=== PATIENT | male | born 1960 | race Caucasian/White ===

== ENCOUNTER 2018-02-07 08:42 | Emergency (ER) | payer OTHER ==
[2018-02-07 08:50] VITALS: BP 142/80
== END 2018-02-07 08:58 | disposition left against medical advice (07) ==
DX: R10.84 Generalized abdominal pain (principal); Z53.21 Procedure and treatment not carried out due to patient leaving prior to being seen by health care provider

== ENCOUNTER 2018-05-30 18:04 | Observation (INO) | payer OTHER ==
[2018-05-30] MEDS ORDERED: NS 1,000 ML IV ONE (18:32)
--- NOTE | 2018-05-30 18:36 | EDPHY ---
H & P Stated Complaint: abd pain - Personal History Current Tetanus/Diphtheria Vaccine: Unsure Current Tetanus Diphtheria and Acellular Pertussis (TDAP): Unsure - Medical/Surgical History Hx Asthma: No Hx Chronic Respiratory Disease: No Hx Diabetes: No Hx Cardiac Disease: No Hx Renal Disease: No Hx Cirrhosis: No Hx Alcoholism: No Hx HIV/AIDS: No Hx Splenectomy or Spleen Trauma: No Other PMH: bilateral hip replacements, diverticulitis, arthririts, [place] - Social History Smoking Status: Never smoked Time Seen by Provider: 05/30/18 18:16 HPI/ROS: CHIEF COMPLAINT: Lower abdominal pain since 10:00 a.m. Today HISTORY OF PRESENT ILLNESS: 58-year-old male with prior history of uncomplicated diverticulitis via private vehicle complaining of abdominal pain since 10:00 a.m. This morning. Atraumatic. Describes in the bilateral lower quadrants. No testicular pain. No acute urinary abnormality. No radiation. No fever no chills. No diarrhea. No bowel movement abnormality. No melena or hematochezia Last oral intake at 5:00 p.m. Consisting of yogurt which he tolerated well PRIMARY CARE PROVIDER: REVIEW OF SYSTEMS: 10 systems reviewed and negative with the exception of the elements mentioned in the history of present illness PAST MEDICAL & SURGICAL HISTORY: Recurrent diverticulitis SOCIAL HISTORY: Nonsmoker FAMILY HISTORY: No pertinent family history PHYSICAL EXAM (Prior to examination, patient consented to physical exam, hands were washed and my usual and customary physical exam procedures followed) 1) GENERAL: Well-developed, well-nourished, alert and oriented. Appears to be in no acute distress. 2) HEAD: Normocephalic, atraumatic 3) HEENT: Pupils equal, round, reactive to light bilaterally. Sclera anicteric. 4) NECK: Full range of motion, no meningeal signs. 5) LUNGS: Clear auscultation bilaterally, no wheezes, no rhonchi, no retractions. 6) HEART: Regular rate and rhythm, no murmur, no heave, no gallop. 7) ABDOMEN: focally tender to palpation bilateral lower quadrants right greater than left,, negative Daly's, negative peritoneal sign, 8) MUSCULOSKELETAL: Moving all extremities, no focal areas of tenderness, no obvious trauma. No peripheral edema or discoloration. 9) BACK: No CVA tenderness, no midline vertebral tenderness, no fluctuance, no step-off, no obvious trauma, no visual or palpable abnormality. 10) SKIN: No rash, no petechiae. 11) : Normal male external genitalia bilateral testicles nontender non high- riding. Lab bilateral inguinal examination unremarkable with no mass no tenderness. DIFFERENTIAL DIAGNOSIS: My differential diagnosis includes, but is not limited to, acute appendicitis, acute cholecystitis, bowel obstruction, acute pancreatitis, testicular torsion, gastritis and urinary tract infection. The patient understands that this diagnosis is provisional and can never be 100% accurate. This is a partial list of diagnoses considered. These considerations are based on history, physical exam, past history and reassessment. (Devi Molina) Constitutional: Initial Vital Signs Temperature (C) 36.7 C 05/30/18 18:12 Heart Rate 65 05/30/18 18:12 Respiratory Rate 16 05/30/18 18:12 Blood Pressure 145/92 H 05/30/18 18:12 O2 Sat (%) 97 05/30/18 18:12 O2 Delivery Mode Room Air Allergies/Adverse Reactions: neomycin [Neomycin] Allergy (Intermediate, Verified 05/30/18 18:11) ITCHING, RASH Home Medications: Medication Instructions Recorded Adderall 10 MG (*) 02/07/18 Prozac 10 MG (*) 02/07/18 Medical Decision Making - Diagnostics Imaging Results: Imaging Impressions Abdomen CT 05/30/18 18:32 Impression: 1. Findings, as detailed above, would support a clinical diagnosis of acute appendicitis.. 2. See above report for additional findings. Results called and discussed with Devi PEREZ on 05/30/2018 at 19:44. Imaging Impressions Abdomen CT 05/30/18 18:32 Impression: 1. Findings, as detailed above, would support a clinical diagnosis of acute appendicitis.. 2. See above report for additional findings. Results called and discussed with Devi PEREZ on 05/30/2018 at 19:44. Images reviewed myself (Devi Molina) ED Course/Re-evaluation: 6:35 p.m.: Care of patient under supervision of secondary supervising physician Dr Urena with whom I discussed case and whom evaluated patient independently 7:40 p.m.: Imaging studies interpreted by staff radiologist with images reviewed myself indicates possible appendicitis. Discussed the imaging results with the patient. 7:45 p.m.: Consultation with Dr. Wily Duncan who will consult for suspected appendicitis. Patient remains NPO since 5:00 p.m.. 8:10 p.m.: Patient has been seen and evaluated by Dr. Wily Duncan will plan on appendectomy this evening. (Devi Molina) Other Provider: PHYSICIAN DOCUMENTATION: The patient was evaluated and managed by the Physician Certified Physician Assistant and myself. I have reviewed the chart and agree with the findings and plan of care as documented. In addition, I examined the patient myself at 1945. History confirmed as nontraumatic lower abdominal pain since this morning. Physical findings as follows: Right lower quadrant tenderness but no rebound or guarding. Surgical consultation requested from Dr. Duncan, in ED at 1950. I am the secondary supervising physician. (Georges Urena) - Data Points Laboratory Results: Laboratory Results 05/30/18 18:35 05/30/18 18:35 05/30/18 05/30/18 05/30/18 18:42 18:35 18:35 WBC 13.51 10^3/uL H 10^3/uL (3.80-9.50) RBC 4.71 10^6/uL 10^6/uL (4.40-6.38) Hgb 15.1 g/dL g/dL (13.7-17.5) POC Hgb 15.3 gm/dL gm/dL (13.7-17.5) Hct 42.7 % % (40.0-51.0) POC Hct 45 % % (40-51) MCV 90.7 fL fL (81.5-99.8) MCH 32.1 pg pg (27.9-34.1) MCHC 35.4 g/dL g/dL (32.4-36.7) RDW 12.5 % % (11.5-15.2) Plt Count 284 10^3/uL 10^3/uL (150-400) MPV 10.4 fL fL (8.7-11.7) Neut % (Auto) 80.8 % H % (39.3-74.2) Lymph % (Auto) 12.1 % L % (15.0-45.0) [place] % (Auto) 5.6 % % (4.5-13.0) Eos % (Auto) 0.9 % % (0.6-7.6) Baso % (Auto) 0.3 % % (0.3-1.7) Nucleat RBC Rel Count 0.0 % % (0.0-0.2) Absolute Neuts (auto) 10.92 10^3/uL H 10^3/uL (1.70-6.50) Absolute Lymphs (auto) 1.64 10^3/uL 10^3/uL (1.00-3.00) Absolute Monos (auto) 0.75 10^3/uL 10^3/uL (0.30-0.80) Absolute Eos (auto) 0.12 10^3/uL 10^3/uL (0.03-0.40) Absolute Basos (auto) 0.04 10^3/uL 10^3/uL (0.02-0.10) Absolute Nucleated RBC 0.00 10^3/uL 10^3/uL (0-0.01) Immature Gran % 0.3 % % (0.0-1.1) Immature Gran # 0.04 10^3/uL 10^3/uL (0.00-0.10) POC Sodium 143 mEq/L mEq/L (135-145) Sodium 138 mEq/L mEq/L (135-145) POC Potassium 3.8 mEq/L mEq/L (3.3-5.0) Potassium 4.0 mEq/L mEq/L (3.5-5.2) POC Chloride 104 mEq/L mEq/L (97-110) Chloride 106 mEq/L mEq/L (97-110) Carbon Dioxide 24 mEq/l mEq/l (22-31) Anion Gap 8 mEq/L mEq/L (6-14) POC BUN 15 mg/dL mg/dL (7-23) BUN 16 mg/dL mg/dL (7-23) Creatinine 0.9 mg/dL mg/dL (0.7-1.3) POC Creatinine 0.9 mg/dL mg/dL (0.7-1.3) Estimated GFR > 60 Glucose 100 mg/dL mg/dL (70-100) POC Glucose 100 mg/dL mg/dL (70-100) Calcium 9.3 mg/dL mg/dL (8.5-10.4) Total Bilirubin 0.6 mg/dL mg/dL (0.1-1.4) Conjugated Bilirubin 0.2 mg/dL mg/dL (0.0-0.5) Unconjugated Bilirubin 0.4 mg/dL mg/dL (0.0-1.1) AST 27 IU/L IU/L (17-59) ALT 33 IU/L IU/L (21-72) Alkaline Phosphatase 73 IU/L IU/L (38-126) Total Protein 7.5 g/dL g/dL (6.3-8.2) Albumin 4.3 g/dL g/dL (3.5-5.0) Lipase 58 IU/L IU/L (23-300) Medications Given: Discontinued Medications Fentanyl (Sublimaze) 50 mcg IVP EDNOW ONE Stop: 05/30/18 18:43 Last Admin: 05/30/18 18:47 Dose: 50 mcg Sodium Chloride (Ns) 1,000 mls @ 0 mls/hr IV ONCE ONE PRN Reason: Wide Open Stop: 05/30/18 18:33 Last Admin: 05/30/18 18:47 Dose: 1,000 mls Ketorolac Tromethamine (Toradol) 15 mg IVP EDNOW ONE Stop: 05/30/18 18:41 Last Admin: 05/30/18 18:47 Dose: 15 mg Point of Care Test Results: Chemistry 05/30/18 18:42 POC Sodium 143 mEq/L mEq/L (135-145) POC Potassium 3.8 mEq/L mEq/L (3.3-5.0) POC Chloride 104 mEq/L mEq/L (97-110) POC BUN 15 mg/dL mg/dL (7-23) POC Creatinine 0.9 mg/dL mg/dL (0.7-1.3) POC Glucose 100 mg/dL mg/dL (70-100) ISTAT H&H 05/30/18 18:42 POC Hgb 15.3 gm/dL gm/dL (13.7-17.5) POC Hct 45 % % (40-51) Departure - Departure Disposition: [facility] Inpatient Acute Clinical Impression: Acute appendicitis Qualifiers: Acute appendicitis type: with localized peritonitis Appendicitis gangrene presence: unspecified whether gangrene present Appendicitis perforation presence : without perforation Appendicitis abscess presence: without abscess Qualified Code(s): K35.30 - Acute appendicitis with localized peritonitis, without perforation or gangrene Condition: Fair Referrals: Tyson Flores MD [Primary Care Provider] - As per Instructions
[2018-05-30] MEDS ORDERED: KETOROLAC 15 MG/1 ML SDV IVP ONE (18:40)
[2018-05-30] MEDS ORDERED: fentaNYL 100 MCG/2 ML INJ IVP ONE (18:42)
[2018-05-30] MEDS ORDERED: fentaNYL 100 MCG/2 ML INJ ONE ×3 (18:43→21:30)
[2018-05-30] MEDS ORDERED: IOPAMIDOL (ISOVUE 370) 75 ML BTL IV ONE (18:44)
[2018-05-30 18:47] LABS: PLATELET COUNT 284 10^3/uL (150-400)
[2018-05-30] MEDS ORDERED: cefOXitin SODIUM 2 GM in NS 100 ML IV ONE (20:09)
--- NOTE | 2018-05-30 21:00 | GHP ---
DATE OF ADMISSION: 05/30/2018 CHIEF COMPLAINT: Right lower quadrant pain. HISTORY OF PRESENT ILLNESS: 18 hours of right lower quadrant pain. No vomiting. CT scan shows infl ammation around the appendix. White blood count is 13,000. ALLERGIES: None. CURRENT MEDICATIONS: 1. Prozac. 2. Adderall. PAST SURGICAL HISTORY: Bilateral hip resurfacing. REVIEW OF SYSTEMS: Denies asthma, heart trouble, diabetes, epilepsy, rheumatic fever. SOCIAL HISTORY: Nonsmoker. No alcohol use. 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 . PHYSICAL EXAM: GENERAL: Pleasant adult male. HEENT: No scleral icterus. Pharynx clear. NECK: S upple without adenopathy. LUNGS: Clear. HEART: Normal S1, S2 without murmur. ABDOMEN: Soft, [place] in the right lower quadrant on deep palpation. IMAGING: CT is personally reviewed, and clearly has haziness surround the appendix with stranding in the periappendiceal fat consistent with an early appendicitis. ASSESSMENT: Acute appendicitis. RECOMMENDATIONS: Appendectomy. I did discuss nonoperative management with the patient, but he would like to have a definitive procedure, as he had a similar episode 2 years ago. Risks and benefits we re explained to the patient, who wishes to proceed. /[id number]/MODL
[2018-05-30] MEDS ORDERED: MIDAZOLAM 2 MG/2 ML VIAL IVP ONE (21:23)
--- NOTE | 2018-05-30 21:23 | PDANEPAE ---
ANE Past Medical History - Pulmonary History Hx Oxygen in Use at Home: No Hx Sleep Apnea: No - Endocrine History Hx Diabetes: No ANE Review of Systems Review of Systems: ANE Patient History - Allergies Allergies/Adverse Reactions: neomycin [Neomycin] Allergy (Intermediate, Verified 05/30/18 18:11) ITCHING, RASH - Home Medications Home Medications: Dextroamphetamine/Amphetamine [Dextroamp-Amphetamin 10 mg Tab] 10 mg PO DAILY [Last Taken 05/30/18] FLUoxetine [Prozac 20 MG (*)] 20 mg PO Q2D 05/30/18 [Last Taken 05/29/18] Tamsulosin HCl [Flomax 0.4 MG (*)] 0.4 mg PO HS 05/30/18 [Last Taken 05/29/18] - NPO status NPO Since - Liquids (Date): 05/30/18 NPO Since - Liquids (Time): 16:30 NPO Since - Solids (Date): 05/30/18 NPO Since - Solids (Time): 16:30 - Smoking Hx Smoking Status: Never smoked ANE Labs/Vital Signs - Labs Result Diagrams: 05/30/18 18:35 05/30/18 18:35 - Vital Signs Blood Pressure: 130/78 Heart Rate: 58 Respiratory Rate: 16 O2 Sat (%): 96 Height: 185.42 cm Weight: 90.718 kg ANE Physical Exam - Airway Neck exam: FROM Mallampati Score: Class 2 Mouth exam: normal dental/mouth exam - Pulmonary Pulmonary: no respiratory distress - Cardiovascular Cardiovascular: regular rate and rhythym - ASA Status ASA Status: II, E ANE Anesthesia Plan Anesthesia Plan: general endotracheal anesthesia
[2018-05-30] MEDS ORDERED: MIDAZOLAM 2 MG/2 ML VIAL ONE (21:26)
[2018-05-30] MEDS ORDERED: PROPOFOL 200 MG/20 ML VIAL ONE (21:31)
[2018-05-30] MEDS ORDERED: LIDOCAINE 2% 100 MG/5 ML SYR ONE (21:31)
[2018-05-30] MEDS ORDERED: ROCURONIUM 50 MG/5 ML VIAL ONE (21:32)
[2018-05-30] MEDS ORDERED: METOCLOPRAMIDE 10 MG/2 ML VIAL ONE (21:32)
[2018-05-30] MEDS ORDERED: DEXAMETHASONE 4 MG/ML VIAL ONE ×2 (21:32)
[2018-05-30] MEDS ORDERED: BUPIVACAINE/EPI 0.5% 30 ML SDV ONE (21:59)
[2018-05-30] MEDS ORDERED: SUGAMMADEX SODIUM 200 MG/2 ML VIAL IVP ONE (22:06)
--- NOTE | 2018-05-30 22:26 | POSTANESTH ---
Post Anesthetic Evaluation Cardiovascular Status: Similar to Pre-Op Cond Respiratory Status: Similar to Pre-op Cond. Level of Consciousness/Mental Status: Mildly Sleepy, Arousable Pain Control: Adequate, Prn Tx Ordered Nausea/Vomiting Control: Adequate, Prn Tx Ordered Complications Possibly Related to Anesthesia: None Noted
--- NOTE | 2018-05-30 22:29 | POSTOPPROG ---
Post Op Note Date of Operation: 05/30/18 Surgeon: Wily Duncan Pre-op Diagnosis: acute appy Post-op Diagnosis: same Indication: same Procedure: lap appy Findings: acute appy Inf/Abcess present in the surg proc area at time of surgery?: No Specimen(s): appendix
[2018-05-30] MEDS ORDERED: LR 1,000 ML IV SCH (22:30)
[2018-05-30] MEDS ORDERED: fentaNYL 100 MCG/2 ML INJ IVP PRN (22:30)
[2018-05-30] MEDS ORDERED: MEPERIDINE 25 MG/0.5 ML AMP IVP PRN (22:30)
[2018-05-30] MEDS ORDERED: NALOXONE HCL 0.4 MG/ML INJ IVP PRN (22:30)
[2018-05-30] MEDS ORDERED: ALBUTEROL 3 ML DEYVIAL IH PRN (22:30)
[2018-05-30] MEDS ORDERED: HYDROCODONE/APAP 5/325 TAB PO PRN (22:30)
[2018-05-30] MEDS ORDERED: ONDANSETRON 4 MG/2 ML VIAL IVP PRN ×2 (22:30)
--- NOTE | 2018-05-30 23:31 | GOP ---
DATE OF OPERATION: SURGEON: Wily Duncan MD PREOPERATIVE DIAGNOSIS: Acute appendicitis. POSTOPERATIVE DIAGNOSIS: Acute appendicitis. PROCEDURE PERFORMED: Laparoscopic appendectomy. FINDINGS: INDICATIONS: 58-year-old male with CT showing appendicitis. DESCRIPTION OF PROCEDURE: Under general anesthetic, the abdomen was scrubbed with ChloraPrep, draped in the usual sterile fashion. Infraumbilical incision made. Veress needle used to achieve a pneumo peritoneum. Two 5 mm ports were placed elsewhere. The viscera were examined. The appendix was exud ative, stuck down onto the small bowel. It was gently teased away such that the mesoappendix could b e addressed, where it was harvested with a Harmonic Scalpel. The base of the appendix was identified flush on the cecum and it was stapled flush on the cecum with an Endo-MARIO 30 blue cartridge. The ap pendix was placed in an Endopouch and extracted. There was no free fluid in the abdomen. All gas wa s vented from the abdomen. The fascial defect at the umbilicus was closed with 0 Vicryl. All skin i ncisions closed with 4-0 Vicryl and Dermabond. Marcaine was infiltrated at all the incision sites. The patient tolerated the procedure well. /[id number]/MODL
[2018-05-31] MEDS ORDERED: IBUPROFEN 600 MG TAB PO SCH (06:00)
[2018-05-31 08:10] VITALS: BP 140/81
== END 2018-05-31 09:44 | disposition home or self-care (01) ==
LOC: FOB 23:00
PROVIDERS: ADMIT Surgery; ATTEND Surgery
PROC: 0DTJ4ZZ Resection of Appendix, Percutaneous Endoscopic Approach (ICD-10-PCS; principal; 2018-05-30 21:00)
DX: K35.80 Unspecified acute appendicitis (principal); Z87.19 Personal history of other diseases of the digestive system; Z96.643 Presence of artificial hip joint, bilateral
CPT/HCPCS: 44970; 74177; 96361; 96365; 96375; 99285; G0378; 82435-PO; 82565-PO; 82947-PO; 84132-PO; 84295-PO; 84520-PO; 85014-ER; J0694; J1100; J1885; J2001; J2250; J2704; J2765; J3010; Q9967

== ENCOUNTER 2018-10-26 10:31 | Inpatient (IN) | payer OTHER | END 2018-10-27 18:38 | disposition home or self-care (01) | LOC: F3N 10:31 → F1N 18:11 ==